=== PATIENT | male | born 1965 | race African-American/Black ===

== ENCOUNTER 2019-07-28 11:21 | Emergency (ER) | payer OTHER ==
[2019-07-28 13:26] VITALS: BP 150/75
== END 2019-07-28 13:26 | disposition home or self-care (01) ==
LOC: ED 11:21
DX: S31.25XA Open bite of penis, initial encounter (principal); W54.0XXA Bitten by dog, initial encounter; Y93.89 Activity, other specified; Y92.89 Other specified places as the place of occurrence of the external cause; Y99.8 Other external cause status; I10 Essential (primary) hypertension
CPT/HCPCS: 90715